=== PATIENT | male | born 1990 | race Caucasian/White ===

== ENCOUNTER 2018-02-16 00:39 | Emergency (ER) | payer OTHER ==
[~2018-02-16] VITALS: Ht 167.6 cm; Wt 81.6 kg
[~2018-02-16 00:39] MED LIST: ADVIL COLD & S1 EAC1; ALEVE220 MG; AMOXICILLIN 50500 M1 PO; IBUPROFEN 800800 M1 PO; IBUPROFEN 800800 MG PO; MEDROLDOSEPACK PO; MUCINEX600 MG; NOHOMEMEDICATIONS; OXYCODONE HCL5 M1 PO; PREDNISONE 20 M20 M1 PO; ROBAXIN500 MG PO; TESSALON200 MG PO; THERAFLU COL245.5 ML; TRAMADOL 50 MG50 MG PO; ZOVIRAX 5% OINT15 G1 TP; ZPAK PO
[2018-02-16 01:05] LABS: ABSOLUTE BASOPHILS 0.1 thou/uL (0.0-0.2); ABSOLUTE EOSINOPHILS 0.4 thou/uL (0.0-0.7); ABSOLUTE LYMPHOCYTES 3.4 thou/uL (0.8-5.3); ABSOLUTE MONOCYTES 0.4 thou/uL (0.0-1.2); ABSOLUTE NEUTROPHILS 4.7 thou/uL (1.6-8.1); BASOPHILS 1.1 %; EOSINOPHILS 4.2 %; HEMATOCRIT 45.3 % (42.0-52.0); LYMPHOCYTES 37.5 %; MCH 29.8 pg (26.0-34.0); MCHC 35.3 g/dL (28.0-37.0); MCV 84.3 fL (80.0-100.0); MONOCYTES 4.8 %; MPV 8.1 fl. (7.2-11.1); NUCLEATED RBCS 0 /100WBC; PLATELET COUNT* 209 thou/uL (150-400); POLYS 52.4 %; RBC 5.38 mil/uL (4.50-6.00); RDW-CV 12.7 % (10.5-14.5)
[2018-02-16 01:06] LABS: URINE BILIRUBIN NEGATIVE (Negative); URINE BLOOD NEGATIVE (Negative); URINE CLARITY CLEAR; URINE COLOR YELLOW; URINE GLUCOSE-RANDOM NEGATIVE (Negative); URINE KETONES NEGATIVE (Negative); URINE LEUKOCYTES-REFLEX NEGATIVE (Negative); URINE NITRITE-REFLEX NEGATIVE (Negative); URINE PROTEIN NEGATIVE (Negative); URINE SPECIFIC GRAVITY <= 1.005 (1.005-1.030); URINE UROBILINOGEN 0.2 E.U./dl (0.2-1.0)
[2018-02-16 01:26] LABS: CALCIUM 8.8 mg/dL (8.5-10.1); POTASSIUM 3.3 mmol/L (3.5-5.1); TOTAL BILIRUBIN 0.5 mg/dL (<0.1-1.0); TOTAL PROTEIN 7.1 g/dL (6.4-8.2)
[2018-02-16] MEDS ORDERED: BENTYL 20 MG TA20 M1 PO (03:01)
[2018-02-16] MEDS ORDERED: BACTRIM DS TAB1 EACH PO (03:01)
[2018-02-16] MEDS ORDERED: ZOFRAN ODT4 MG PO (03:01)
[2018-02-16 03:14] VITALS: BP 111/53
== END 2018-02-16 03:15 | disposition home or self-care (01) ==
LOC: M.ERS 00:39
PROVIDERS: Emergency Medicine Emergency Medical Services
DX: R19.7 Diarrhea, unspecified (principal); F41.9 Anxiety disorder, unspecified; F17.210 Nicotine dependence, cigarettes, uncomplicated; Z90.49 Acquired absence of other specified parts of digestive tract

== ENCOUNTER 2019-10-29 07:51 | Emergency (ER) | payer OTHER ==
[~2019-10-29] VITALS: Ht 167.6 cm; Wt 65.8 kg
[~2019-10-29 07:51] MED LIST changes: +BACTRIM DS TAB1 EACH PO; +BENTYL 20 MG TA20 M1 PO; +ZOFRAN ODT4 MG PO
[2019-10-29 08:19] LABS: URINE BILIRUBIN NEGATIVE (Negative); URINE BLOOD NEGATIVE (Negative); URINE CLARITY CLEAR; URINE COLOR YELLOW; URINE GLUCOSE-RANDOM NEGATIVE (Negative); URINE KETONES NEGATIVE (Negative); URINE LEUKOCYTES-REFLEX NEGATIVE (Negative); URINE NITRITE-REFLEX NEGATIVE (Negative); URINE PROTEIN NEGATIVE (Negative); URINE UROBILINOGEN 0.2 E.U./dl (0.2-1.0)
[2019-10-29 09:26] VITALS: BP 131/71
== END 2019-10-29 09:27 | disposition home or self-care (01) ==
LOC: M.ERS 07:51
PROVIDERS: Emergency Medicine
DX: R30.0 Dysuria (principal); F41.9 Anxiety disorder, unspecified; F17.210 Nicotine dependence, cigarettes, uncomplicated; Z90.49 Acquired absence of other specified parts of digestive tract

== ENCOUNTER 2020-03-24 13:40 | Emergency (ER) | payer OTHER ==
[~2020-03-24] VITALS: Ht 170.2 cm; Wt 81.7 kg
[2020-03-24 14:20] LABS: ABSOLUTE BASOPHILS 0.1 thou/uL (0.0-0.2); ABSOLUTE EOSINOPHILS 0.1 thou/uL (0.0-0.7); ABSOLUTE LYMPHOCYTES 2.2 thou/uL (0.8-5.3); ABSOLUTE MONOCYTES 0.5 thou/uL (0.0-1.2); ABSOLUTE NEUTROPHILS 4.4 thou/uL (1.6-8.1); BASOPHILS 0.9 %; EOSINOPHILS 1.6 %; HEMATOCRIT 48.6 % (42.0-52.0); HEMOGLOBIN 17.6 gm/dL (14.0-18.0); LYMPHOCYTES 30.3 %; MCH 31.2 pg (26.0-34.0); MCHC 36.2 g/dL (28.0-37.0); MCV 86.2 fL (80.0-100.0); NUCLEATED RBCS 0 /100WBC; PLATELET COUNT* 278 thou/uL (150-400); POLYS 60.2 %; RBC 5.64 mil/uL (4.50-6.00); WBC 7.4 thou/uL (4.0-11.0)
[2020-03-24 14:26] LABS: CALCIUM 9.1 mg/dL (8.5-10.1); CREATININE 1.1 mg/dL (0.6-1.3); POTASSIUM 3.8 mmol/L (3.5-5.1)
[2020-03-24 14:36] LABS: ALBUMIN 4.2 g/dL (3.4-5.0); MAGNESIUM 2.1 mg/dL (1.8-2.4); TOTAL BILIRUBIN 0.6 mg/dL (<0.1-1.0)
[2020-03-24] MEDS ORDERED: ZPAK PO (15:08)
[2020-03-24] MEDS ORDERED: VENTOLIN HFA 1818 GM INH (15:08)
[2020-03-24 15:21] VITALS: BP 125/70
--- NOTE | 2020-03-24 16:14 | EKG ---
[place] [address] ELECTROCARDIOGRAM REPORT Name: BLAYNE CONDON Room: [facility]#: [id number] Admission: 03/24/20 Attend Phys: Discharge: 03/24/20 Date of : 89 Date of Service: 03/24/20 1345 Report #: [id number] THIS REPORT FOR: //name// [facility] ED Test Date: 2020-03-24 Test Time: 13:45:03 Pat Name: BLAYNE CONDON Department: Room: Gender: [employer]: [place] : 1990 Requested By: Jocy Medeiros Order Number: [id number] : Cristobal Rodriguez Measurements Intervals Rickman Rate: 66 P: 33 ID: 129 QRS: 10 QRSD: 93 T: 32 QT: 381 QTc: 400 Interpretive Statements Sinus rhythm Compared to ECG 08/19/2016 20:53:33 No significant changes Electronically Signed On 03-24-2020 16:12:49 CDT by Cristobal Rodriguez [email or web address] <ELECTRONICALLY SIGNED> By: Cristobal Rodriguez MD, [facility] 03/24/20 1612 1345 1345 Cristobal Rodriguez MD, FAC /EPI
== END 2020-03-24 15:22 | disposition home or self-care (01) ==
LOC: M.ERS 13:40
PROVIDERS: Nurse Practitioner Family
DX: B34.9 Viral infection, unspecified (principal); R74.8 Abnormal levels of other serum enzymes; R07.89 Other chest pain; F17.210 Nicotine dependence, cigarettes, uncomplicated; F41.9 Anxiety disorder, unspecified; Z90.49 Acquired absence of other specified parts of digestive tract

== ENCOUNTER 2020-03-26 20:02 | Emergency (ER) | payer OTHER ==
[~2020-03-26] VITALS: Ht 170.2 cm; Wt 81.6 kg
[~2020-03-26 20:02] MED LIST changes: +VENTOLIN HFA 1818 GM INH
[2020-03-26 20:17] LABS: URINE BILIRUBIN NEGATIVE (Negative); URINE BLOOD NEGATIVE (Negative); URINE COLOR YELLOW; URINE GLUCOSE-RANDOM NEGATIVE (Negative); URINE KETONES NEGATIVE (Negative); URINE LEUKOCYTES-REFLEX TRACE (Negative); URINE NITRITE-REFLEX NEGATIVE (Negative); URINE PROTEIN NEGATIVE (Negative); URINE UROBILINOGEN 0.2 E.U./dl (0.2-1.0)
[2020-03-26 20:18] LABS: URINE CLARITY HAZY
[2020-03-26 20:27] LABS: BACTERIA-REFLEX None Seen /HPF (None Seen); CASTS None Seen /LPF (None Seen); CRYSTALS None Seen /LPF (None Seen); SQUAMOUS 0-3 Few /LPF (0-3); URINE RBC None Seen /HPF (0-2); URINE WBC-REFLEX 0-5 Rare /HPF (0-5)
[2020-03-26 20:47] LABS: ABSOLUTE BASOPHILS 0.1 thou/uL (0.0-0.2); ABSOLUTE EOSINOPHILS 0.1 thou/uL (0.0-0.7); ABSOLUTE LYMPHOCYTES 2.6 thou/uL (0.8-5.3); ABSOLUTE MONOCYTES 0.5 thou/uL (0.0-1.2); HEMOGLOBIN 15.7 gm/dL (14.0-18.0); MCHC 36.1 g/dL (28.0-37.0); RDW-CV 12.7 % (10.5-14.5)
[2020-03-26 20:51] LABS: ABSOLUTE NEUTROPHILS 3.8 thou/uL (1.6-8.1); BASOPHILS 1.1 %; EOSINOPHILS 1.8 %; HEMATOCRIT 43.5 % (42.0-52.0); LYMPHOCYTES 37.1 %; MCV 85.9 fL (80.0-100.0); MONOCYTES 6.8 %; MPV 8.2 fl. (7.2-11.1); NUCLEATED RBCS 0 /100WBC; PLATELET COUNT* 250 thou/uL (150-400); POLYS 53.2 %; RBC 5.06 mil/uL (4.50-6.00)
[2020-03-26 20:54] LABS: CALCIUM 8.3 mg/dL (8.5-10.1); CREATININE 1.2 mg/dL (0.6-1.3)
[2020-03-26 20:59] LABS: ALBUMIN 3.6 g/dL (3.4-5.0); TOTAL BILIRUBIN 0.6 mg/dL (<0.1-1.0); TOTAL PROTEIN 6.8 g/dL (6.4-8.2)
[2020-03-26] MEDS ORDERED: CIPROFLOXACIN500 M1 PO (23:28)
[2020-03-26] MEDS ORDERED: PYRIDIUM200 MG PO (23:28)
[2020-03-26] MEDS ORDERED: LORCET 5-325 M1 EACH PO (23:30)
[2020-03-26 23:43] VITALS: BP 112/79
== END 2020-03-26 23:43 | disposition home or self-care (01) ==
LOC: M.ERS 20:02
PROVIDERS: Emergency Medicine
DX: I88.0 Nonspecific mesenteric lymphadenitis (principal); R35.8 Other polyuria; F17.210 Nicotine dependence, cigarettes, uncomplicated; F12.90 Cannabis use, unspecified, uncomplicated; Z90.49 Acquired absence of other specified parts of digestive tract